=== PATIENT | female | born 1990 | race Two or more races ===

== ENCOUNTER 2019-01-12 20:19 | Emergency (ER) | payer OTHER ==
[~2019-01-12] VITALS: Ht 160 cm; Wt 61.4 kg
[2019-01-12 20:20] VITALS: BP 129/71
[2019-01-12] MEDS ORDERED: DRIS50003 PO (20:26)
[2019-01-12] MEDS ORDERED: diphenhydrAMINE INJ 50MG/ML VIAL (J1200) IV ONE (23:00)
[2019-01-12] MEDS ORDERED: GI COCKTAIL 50ML BTL(HYOSCYAMINE/MAALOX/LIDOCAINE VISCOUS)(1:3:1) PO ONE (23:00)
[2019-01-12] MEDS ORDERED: NS 1,000 ML IV ONE (23:00)
[2019-01-12] MEDS ORDERED: SUCRALFATE 1 GM TAB PO ONE (23:00)
[2019-01-12 23:07] LABS: BASO % 0.3 % (0.0-1.0); EOS # 0.7 10^3/uL (0.0-0.50); EOS % 8.8 % (0.0-3.0); HEMOGLOBIN 13.4 g/dl (12.0-15.5); LYMPH # 2.9 10^3/uL (1.5-6.5); LYMPH % 36.4 % (24.0-44.0); MEAN CORPUSCULAR HEMOGLOBIN 29.8 pg (27.0-33.0); MEAN CORPUSCULAR HGB CONC 33.5 g/dl (32.0-36.5); MEAN CORPUSCULAR VOLUME 89.1 fl (80.0-96.0); MONO # 0.4 10^3/uL (0.0-0.8); MONO % 5.3 % (0.0-5.0); NEUTROPHILS # 3.9 10^3/uL (1.8-7.7); NEUTROPHILS % 49.1 % (36.0-66.0); RED BLOOD COUNT 4.49 10^6/uL (4.00-5.40); WHITE BLOOD COUNT 7.9 10^3/uL (4.0-10.0)
[2019-01-12] MEDS ORDERED: ISOVUE-370 76% 100ML VIAL (Q9967) As Ordered ONE (23:09)
[2019-01-12 23:18] LABS: ALT/SGPT 42 U/L (12-78); BILIRUBIN,DIRECT < 0.1 MG/DL (0.0-0.2); BILIRUBIN,TOTAL 0.6 MG/DL (0.2-1.0); BLOOD UREA NITROGEN 9 MG/DL (7-18); CALCIUM LEVEL 8.7 MG/DL (8.5-10.1); CARBON DIOXIDE LEVEL 31 MEQ/L (21-32); CHLORIDE LEVEL 104 MEQ/L (98-107); CREATININE FOR GFR 0.74 MG/DL (0.55-1.30); GLOMERULAR FILTRATION RATE > 60.0 (>60); GLUCOSE, FASTING 96 MG/DL (70-100); LIPASE 231 U/L (73-393); POTASSIUM SERUM 3.6 MEQ/L (3.5-5.1); SODIUM LEVEL 138 MEQ/L (136-145)
[2019-01-12 23:21] LABS: HCG, SERUM QUALITATIVE NEGATIVE (NEGATIVE)
[2019-01-12] MEDS ORDERED: RANI15TA PO (23:38)
[2019-01-12] MEDS ORDERED: CARA1TAB6 PO (23:38)
== END 2019-01-12 23:53 | disposition left against medical advice (07) ==
LOC: M ED 20:19
DX: R10.13 Epigastric pain (principal); Z79.899 Other long term (current) drug therapy; Z53.21 Procedure and treatment not carried out due to patient leaving prior to being seen by health care provider

== ENCOUNTER 2019-01-15 13:31 | Emergency (ER) | payer OTHER ==
[~2019-01-15] VITALS: Ht 160 cm; Wt 61.8 kg
[~2019-01-15 13:31] MED LIST: CARA1TAB6 PO; DRIS50003 PO; RANI15TA PO
[2019-01-15] MEDS ORDERED: GI COCKTAIL 50ML BTL(HYOSCYAMINE/MAALOX/LIDOCAINE VISCOUS)(1:3:1) PO ONE (15:30)
[2019-01-15 15:55] LABS: BASO % 0.4 % (0.0-1.0); EOS # 0.5 10^3/uL (0.0-0.50); EOS % 6.3 % (0.0-3.0); HEMATOCRIT 42.2 % (36.0-47.0); HEMOGLOBIN 14.3 g/dl (12.0-15.5); LYMPH # 2.2 10^3/uL (1.5-6.5); LYMPH % 27.1 % (24.0-44.0); MEAN CORPUSCULAR HEMOGLOBIN 29.5 pg (27.0-33.0); MEAN CORPUSCULAR HGB CONC 33.9 g/dl (32.0-36.5); MEAN CORPUSCULAR VOLUME 87.2 fl (80.0-96.0); MONO # 0.4 10^3/uL (0.0-0.8); MONO % 5.3 % (0.0-5.0); NEUTROPHILS % 60.7 % (36.0-66.0); PLATELET COUNT, AUTOMATED 176 10^3/uL (150-450); RED BLOOD COUNT 4.84 10^6/uL (4.00-5.40); WHITE BLOOD COUNT 8.2 10^3/uL (4.0-10.0)
[2019-01-15 16:28] LABS: ALBUMIN 4.4 GM/DL (3.2-5.2); ALT/SGPT 49 U/L (12-78); BILIRUBIN,DIRECT 0.2 MG/DL (0.0-0.2); BILIRUBIN,TOTAL 0.7 MG/DL (0.2-1.0); BLOOD UREA NITROGEN 10 MG/DL (7-18); CALCIUM LEVEL 8.9 MG/DL (8.5-10.1); CARBON DIOXIDE LEVEL 30 MEQ/L (21-32); CHLORIDE LEVEL 103 MEQ/L (98-107); CREATININE FOR GFR 0.63 MG/DL (0.55-1.30); GLOMERULAR FILTRATION RATE > 60.0 (>60); GLUCOSE, FASTING 81 MG/DL (70-100); LIPASE 274 U/L (73-393); POTASSIUM SERUM 3.5 MEQ/L (3.5-5.1); SODIUM LEVEL 138 MEQ/L (136-145); TOTAL PROTEIN 8.9 GM/DL (6.4-8.2)
[2019-01-15] MEDS ORDERED: PROT1TAB2 PO (16:30)
[2019-01-15] MEDS ORDERED: CARA1TAB6 PO (16:30)
[2019-01-15 16:44] VITALS: BP 114/83
== END 2019-01-15 16:45 | disposition home or self-care (01) ==
LOC: M ED 13:31
DX: K29.00 Acute gastritis without bleeding (principal); K21.9 Gastro-esophageal reflux disease without esophagitis; Z79.899 Other long term (current) drug therapy

== ENCOUNTER 2019-04-23 12:20 | Emergency (ER) | payer OTHER ==
[~2019-04-23] VITALS: Ht 160 cm; Wt 62.0 kg
[~2019-04-23 12:20] MED LIST changes: +PROT1TAB2 PO
[2019-04-23] MEDS ORDERED: ASPIRIN 81 MG CHEW TABLET PO ONE (13:45)
[2019-04-23 14:13] LABS: BASO % 0.3 % (0.0-1.0); EOS # 0.1 10^3/uL (0.0-0.50); EOS % 0.8 % (0.0-3.0); HEMOGLOBIN 12.7 g/dl (12.0-15.5); LYMPH # 1.9 10^3/uL (1.5-6.5); LYMPH % 27.9 % (24.0-44.0); MEAN CORPUSCULAR HEMOGLOBIN 29.9 pg (27.0-33.0); MEAN CORPUSCULAR HGB CONC 33.4 g/dl (32.0-36.5); MEAN CORPUSCULAR VOLUME 89.4 fl (80.0-96.0); MONO # 0.4 10^3/uL (0.0-0.8); MONO % 5.7 % (0.0-5.0); NEUTROPHILS # 4.3 10^3/uL (1.8-7.7); NEUTROPHILS % 65.1 % (36.0-66.0); PLATELET COUNT, AUTOMATED 181 10^3/uL (150-450); RED BLOOD COUNT 4.25 10^6/uL (4.00-5.40); WHITE BLOOD COUNT 6.6 10^3/uL (4.0-10.0)
[2019-04-23 14:52] LABS: CK-MB VALUE MASS < 1.0 NG/ML (<3.6); CPK CREATINE PHOSPHOKINASE 115 U/L (26-192); MAGNESIUM LEVEL 2.2 MG/DL (1.8-2.4); MB/CK RELATIVE INDEX 0.87 (< OR =4); TROPONIN I < 0.02 NG/ML (< 0.10)
--- NOTE | 2019-04-23 15:15 | REP ---
PA and lateral chest: There are no comparisons. The lung sanches are clear. The cardiac size is normal. The anastasia, mediastinum, and skeletal structures are unremarkable. Impression: Negative PA and lateral chest. Electronically Signed by Frandy Hope MD 04/23/2019 03:06 P
[2019-04-23 15:45] VITALS: BP 107/70
[2019-04-23] MEDS ORDERED: LEVO50TA5 PO (15:56)
--- NOTE | 2019-04-23 16:29 | REP ---
CT of the cervical spine without IV contrast: Vertebral body heights, interspacing alignment are normal. The prevertebral soft tissues are normal. The facets are normally aligned. There is reversal of the normal cervical lordosis.. This is secondary to head positioning in the scanning gantry. The skull base, C1-C2 are unremarkable. There are no posterior element fractures. There is no bony foraminal encroachment. Impression: Essentially negative CT study of the cervical spine. Given symptomatology, neurologic consultation is recommended. MRI might be considered if felt clinically indicated. Electronically Signed by Frandy Hope MD 04/23/2019 04:20 P
--- NOTE | 2019-04-24 06:58 | ECGEPIP ---
[facility] - ED Test Date: 2019-04-23 Pat Name: CHELSEA VELEZ Department: Room: - Gender: Female Respiratory Coordinator: ct : 1990 Requested By: LOS Mina Order Number: [id number] Reading MD: Kenny Davila Measurements Intervals Rodney Rate: 60 P: 52 DE: 147 QRS: 73 QRSD: 90 T: 62 QT: 428 QTc: 429 Interpretive Statements SINUS RHYTHM BENIGN EARLY REPOLARIZATION NO PRIORS FOR COMPARISON Electronically Signed on 04-24-2019 6:58:29 EDT by Kenny Davila
--- NOTE | 2019-04-25 13:18 | ED PDOC ---
Post-Departure Follow-Up ft angelita fleming faxed formal report of ct c spine for fu Yulia Shetty MD Apr 25, 2019 13:18
== END 2019-04-23 16:10 | disposition home or self-care (01) ==
LOC: M ED 12:20
DX: R07.9 Chest pain, unspecified (principal); R79.89 Other specified abnormal findings of blood chemistry; Z87.19 Personal history of other diseases of the digestive system

== ENCOUNTER 2020-03-15 11:47 | Inpatient (IN) | payer OTHER ==
[2020-03-15] VITALS (23 sets, daily range): BP systolic 102–212; BP diastolic 55–89
[~2020-03-15] VITALS: Ht 160 cm; Wt 78.3 kg
[~2020-03-15 11:47] MED LIST changes: +LEVO50TA5 PO
[2020-03-15] MEDS ORDERED: DURA1CAP PO (12:02)
[2020-03-15] MEDS ORDERED: PRENTAB9 PO (12:02)
[2020-03-15] MEDS ORDERED: LACTATED RINGER'S 1000 ML IV STA (12:40)
[2020-03-15] MEDS ORDERED: OXYTOCIN DRIP 30 UNITS in IV 1 EA IV SCH (12:45)
[2020-03-15] MEDS: LR 1,000 ML IV SCH ×2 (13:40→20:10)
[2020-03-15 14:17] LABS: BASO % 0.2 % (0.0-1.0); EOS # 0.1 10^3/uL (0.0-0.5); EOS % 0.7 % (0.0-3.0); HEMOGLOBIN 12.1 g/dl (12.0-15.5); LYMPH # 1.3 10^3/uL (1.5-5.0); LYMPH % 15.5 % (24.0-44.0); MEAN CORPUSCULAR HEMOGLOBIN 29.9 pg (27.0-33.0); MEAN CORPUSCULAR HGB CONC 32.7 g/dl (32.0-36.5); MEAN CORPUSCULAR VOLUME 91.4 fl (80.0-96.0); MONO # 0.6 10^3/uL (0.0-0.8); NEUTROPHILS # 6.3 10^3/uL (1.5-8.5); NEUTROPHILS % 75.8 % (36.0-66.0); PLATELET COUNT, AUTOMATED 193 10^3/uL (150-450); RED BLOOD COUNT 4.05 10^6/uL (4.00-5.40); WHITE BLOOD COUNT 8.4 10^3/uL (4.0-10.0)
--- NOTE | 2020-03-15 15:03 | HPEPDOC ---
Obstetrical History & Physical General Date of Admission March 15, 2020 at 13:41 History of Present Illness Usha is a 29yo at 40+4 weeks gestation, EDC of [id number] by 1TUS at 9+5 weeks, is being admitted for elective induction of labor and Trial of Labor after . She was previously counseled and consented by the OB and she verbalizes today her continued desire for a TOLAC. She reports +FM, denies LOF/VB/CTX. She is here today with her spouse at the bedside. Her blood type is A Positive; GBS is negative. Her is complicated by history of hypothyroidism, currently taking 75mcg of Synthroid. OB History: 11/2015, PLTCS in [facility] for breech presentation (C/S records available for review in chart) Chief Complaint: Induction of labor, Other (TOLAC) Information Provided By: Patient Age: 29 : 2 Term: 1 Pre-term: 0 Abortions: 0 Livin Care Care: Good Care Number of Visits: 7 Dating Final EDC: March 11, 2020 Final EDC for Daily Update: March 11, 2020 Final EDC by: 1st trimester (US) Antepartum Course Height (inches): 63 Pre- weight (lbs.): 136 Admission Weight (lbs.): 170 Change in Weight (lbs.): 34 Past Medical History Past Obstetrical History : Past Obstetrical History: Multigravida Type of Delivery: Ceserean section (Breech) Sex of Infant: Male Weight of Infant (grams): 2970 Complications: No VALVE LAPPER History: No pertinent history (Last Pap 10/2019 NILM) Past Medical History Medical History Hypothyroidism Surgical History: section, Gallbladder, Hernia repair (groin) Family History Significant Family History: No pertinent family hx Social History Marital Status: Family situation: Spouse/partner home Psychosocial History: No pertinent psych hx * Smoker: non-smoker Alcohol: Denies Drugs: denies Imunizations Tdap status: declined Influenza Status: current Allergies Coded Allergies: No Known Allergies (Unverified , 01/12/19) Medications Scheduled Levothyroxine Sodium (Levothyroxine Sodium) 50 Mcg Tablet, 1 TAB PO DAILY No.137/Iron/Folic Acd ( Vitamin Tablet) 1 Each Tablet, 1 TAB PO DAILY Vitamin D3/Folic Acid (Durachol 3,775 Unit-1 mg Cap) 1 Each Capsule, 1 CAP PO DAILY Physical Examination Physical Examination GENERAL: Alert and oriented times three. BREAST: . ABDOMEN: Gravid and non-tender to touch. FETUS: Is vertex by sterile vaginal examination and TAUS. HEART RATE: Regular rate. LUNGS: Observed nonlabored breathing. EXTREMITIES: No edema. Vital Signs/I&O O: VSS, normotensive, afebrile VE: 1/L/-3 FHR 140s, moderate variability, No accels or decels. Category I. There have been accels noted. CTX by TOCO - occasional CRB placed via SSE - 60mL NS placed in each balloon - pt tolerated procedure well Pitocin started at 2mu/min - will hold at 6mu/min until CRB is out Laboratory Data 24H LABS Laboratory Tests 2 03/15/20 12:34: Immature Granulocyte % (Auto) 0.8, Neutrophils (%) (Auto) 75.8H, Lymphocytes (%) (Auto) 15.5L, Monocytes (%) (Auto) 7.0H, Eosinophils (%) (Auto) 0.7, Basophils (%) (Auto) 0.2, Neutrophils # (Auto) 6.3, Lymphocytes # (Auto) 1.3L, Monocytes # (Auto) 0.6, Eosinophils # (Auto) 0.1, Basophils # (Auto) 0.0, Nucleated Red Blood Cells % (auto) 0.0 03/15/20 13:44: Serology Scanned Report Hepatitis B Testing CBC/BMP Laboratory Tests 03/15/20 12:34 Pertinent Laboratoy Data Blood Type: A+ RBC Antibody Screen: Negative HIV: Negative Hepatitis B: Negative Rapid Plasma Reagin: Nonreactive Rubella: Immune Varicella: Immune Chlamydia/Gonorrhea: Negative Group B Streptococcus: Negative Quad Screen Test: Declined Anatomy Ultrasound Ultrasound Date: Oct 21, 2019 Placenta Location: Posterior Normal Anatomy: Yes Placenta Previa: No Vaginal Examination Presentation: Cephalic presentation Assessment/Plan Assessment A: Usha is a 29yo at 40+4wks being admitted for Elective IOL/TOLAC. VTX confirmed by TAUS. She has a Category I FHT. CRB in place and pitocin started. GBS Negative, A Positive. Plan P: Admit to LND, counseled on CRB and Pitocin induction Pt previously consented for TOLAC and today she desires to continue for IOL/TOLAC PIV start, admission labs drawn PO and IV hydration Clear liquid diet CEFM x2 Close maternal/ monitoring Rx for Synthroid for AM dosing Anticipate Repeat C-S as appropriate Co-manage with OB. PILLO MCKENZIE CNM March 15, 2020 15:02
[2020-03-15] MEDS ORDERED: SYNT75TA PO (15:13)
[2020-03-15] MEDS ORDERED: PROMETHAZINE INJ 25 MG/ML VIAL (J2550) IV ONE (19:45)
[2020-03-15] MEDS ORDERED: BUTORPHANOL 2 MG/ML INJ (J0595) IV PRN (19:45)
[2020-03-16] VITALS (15 sets, daily range): BP systolic 95–150; BP diastolic 52–66
--- NOTE | 2020-03-16 00:04 | IPNPDOC ---
Text Note Date of Service The patient was seen on 03/16/20. NOTE Intrapartum Note Usha is a 29yo at 40w4d undergoing IOL with history of prior section for breech presentation. IOL was started with aj bulb 60/60 and low dose pitocin up to 6mu. Aj bulb fell out around 2215. Patient also received stadol/phenergan approx 2hr ago. She is now feeling ctx as very strong, otherwise doing well. Membranes still intact. Vitals wnl, afebrile Cat I-II FHRT with bl 120's, min-mod hina, +accels, recent early decels SCE: /-2 Patient interested in epidural, will hold off on ROM for now Will continue pitocin at current level Will continue to closely monitor Safe to proceed Dr. Marcy Devi MD VS,Chanel, I+O VS, Chanel, I+O Laboratory Tests 03/15/20 12:34 Vital Signs Date Time Temp Pulse Resp B/P (MAP) Pulse Ox O2 Delivery O2 Flow Rate FiO2 03/15/20 22:38 99 18 113/67 (82) 03/15/20 22:38 97.8 I&O- Last 24 Hours up to 6 AM 03/16/20 06:00 Intake Total 300 ml Balance 300 ml Marcy Devi MD March 16, 2020 00:04
[2020-03-16] MEDS ORDERED: FENTANYL 2MCG/ML ROPIVACAINE 0.2% IN 0.9% NACL 100ML IVBAG As Ordered ONE (00:06)
[2020-03-16] MEDS ORDERED: EPIDURAL COMMENT XX SCH (00:23)
[2020-03-16] MEDS ORDERED: NALOXONE INJ 0.4MG/1ML VIAL (J2310 PER 1MG) IV PRN ×3 (00:23→01:36)
[2020-03-16] MEDS ORDERED: LACTATED RINGER'S 1000 ML IV PRN (00:23)
[2020-03-16] MEDS ORDERED: ePHEDrine SULFATE 25 MG/5 ML(5MG/ML) SYRINGE IV PRN (00:23)
[2020-03-16] MEDS ORDERED: FENTANYL/ROPIVACAINE/NACL BAG 100 ML EPIDURAL SCH (00:23)
[2020-03-16] MEDS ORDERED: diphenhydrAMINE 50MG/ML VIAL (J1200) IV PRN ×2 (00:23→01:36)
[2020-03-16] MEDS ORDERED: EPIDURAL/PCA KEYS XX PRN (00:23)
[2020-03-16] MEDS ORDERED: REFRIGERATOR IV KEYS XX PRN (00:23)
[2020-03-16 01:29] LABS: CORD GAS ABE V -4.5; CORD GAS HCO3 V 23.8 MEQ/L; CORD GAS O2 SAT V 45.9 %; CORD GAS PCO2 V 57.1 mmHg; CORD GAS PH V 7.238 UNITS; CORD GAS SBC V 19.5 MEQ/L; CORD GAS TCO2 V 25.6 MEQ/L
[2020-03-16] MEDS ORDERED: LIDOCAINE 2% W/EPIN INJ 20ML **PRES FREE As Ordered ONE (01:32)
[2020-03-16] MEDS ORDERED: ONDANSETRON 4MG/2ML VIAL As Ordered ONE ×2 (01:33→03:34)
[2020-03-16] MEDS ORDERED: MORPHINE PRES-FREE INJ 10 MG/10 ML VIAL (J2274) As Ordered ONE (01:34)
[2020-03-16] MEDS ORDERED: NALBUPHINE HCL 10 MG/ML AMP (J2300) IV PRN (01:36)
[2020-03-16] MEDS ORDERED: METOCLOPRAMIDE INJ 10MG/2ML VIAL (J2765 PER 1) IV PRN ×2 (01:36→02:45)
[2020-03-16] MEDS ORDERED: ONDANSETRON 4MG/2ML VIAL IV PRN ×2 (01:36→02:45)
[2020-03-16] MEDS ORDERED: ceFAZolin 2 GM/D5W 50 ML IV BAG (J0690 PER 500MG) As Ordered ONE (01:47)
[2020-03-16] MEDS ORDERED: KETOROLAC 60 MG/2 ML VIAL As Ordered ONE (01:53)
[2020-03-16] MEDS ORDERED: propofoL 200 MG/20 ML VIAL As Ordered ONE (01:53)
[2020-03-16] MEDS ORDERED: ceFAZolin SOD 2 GM in IV 1 EA IV ONE (02:00)
[2020-03-16] MEDS ORDERED: OXYTOCIN 30 UNITS IN 0.9% NaCl 500ML IV BAG (J2590) As Ordered ONE ×2 (02:08→02:20)
[2020-03-16] MEDS ORDERED: OXYTOCIN DRIP 30 UNITS in IV 1 EA IV SCH (02:28)
[2020-03-16] MEDS ORDERED: PERCOCET 5MG/325MG TAB PO PRN ×2 (02:30→02:45)
[2020-03-16] MEDS ORDERED: MEASLES,MUMPS,RUBELLA VACCINE INJ (MMR-II) (90707) SC SCH (02:30)
[2020-03-16] MEDS ORDERED: RHOGAM 300 MCG (1500 IU) INJ (J2790) IM SCH (02:30)
--- NOTE | 2020-03-16 02:35 | REPVR ---
PROCEDURE INFORMATION: Exam: XR Abdomen, 1 View Exam date and time: 03/16/2020 2:10 AM Age: 29 years old Clinical indication: Other: no count TECHNIQUE: Imaging protocol: XR of the abdomen. Views: Frontal supine view of the abdomen. 1 View. COMPARISON: No relevant prior studies available. FINDINGS: Tubes, catheters and devices: For metallic wire overlying the upper lumbar spine, likely epidural catheter. Gastrointestinal tract: Normal. No bowel dilation. Organs: Soft tissue density and paucity of gas over the pelvis consistent with uterus. Bones/joints: Mild diastasis of the symphysis pubis. Soft tissues: No retained foreign bodies or retained instruments. IMPRESSION: 1. Mild diastasis of the symphysis pubis. 2. Soft tissue density over the pelvis which may reflect uterus. 3. Probable epidural catheter overlying the mid lumbar spine. 4. No radiopaque foreign bodies or retained instruments are seen. Electronically signed by: Andrey Espinoza On 03/16/2020 02:34:34 AM
[2020-03-16] MEDS ORDERED: fentaNYL 100 MCG/2 ML INJECTION (J3010) IV PRN (02:45)
[2020-03-16] MEDS ORDERED: KETOROLAC 30 MG/ML 1ML VIAL IV PRN (02:45)
[2020-03-16] MEDS ORDERED: LR 1,000 ML IV SCH (02:45)
[2020-03-16] MEDS: LEVOTHYROXINE 75MCG TABLET (0.075MG) PO SCH (06:21)
[2020-03-16] MEDS: LR 1,000 ML IV SCH ×3 (06:55→20:16)
--- NOTE | 2020-03-16 07:01 | DNPDOC ---
[facility] Delivery Note Delivery Note DATE OF DELIVERY: 03/16/20 PREDELIVERY DIAGNOSIS: History of prior section for breech presentation IOL at 40w4d bradycardia Failed TOLAC POST DELIVERY DIAGNOSIS: History of prior section for breech presentation IOL at 40w4d bradycardia Failed TOLAC Delivered PROCEDURE: Emergency repeat low transverse section FACILITY MANAGER: Dr. Marcy Devi MD ANESTHESIA: epidural ESTIMATED BLOOD LOSS: 500 mL. IVF: 700ml LR UOP: 225ml FINDINGS: 8 pound 0 ounce (3630g) female , Score 9/9 DELIVERY SUMMARY: Usha is a 29yo [id number] s/p uncomplicated emergency RLTCS for bradycardia that developed at 6/80/-2 while undergoing IOL at 40w4d. She had aj cervical bulb placed with low dose pitocin, she progressed well after aj bulb fell out, but eventually developed bradycardia resistant to resuscitative measures ( heart rate 90's-frc727's for approx 10min). Patient was rushed to the operating room with verbal consent for section and the procedure was uncomplicated. portable x-ray performed at the end of the procedure showed no retained instruments/sponges. Please see dictated op report for further details. MD Shandra Ashby Katrina D MD March 16, 2020 07:01
[2020-03-16] MEDS: KETOROLAC 30 MG/ML 1ML VIAL IV SCH ×3 (07:44→20:18)
--- NOTE | 2020-03-16 08:59 | IPNPDOC ---
Progress Note Date of Service: March 16, 2020 Day#: 0 Progress Note PPD/POD 0 SUBJECT: Usha is a 29yo [id number] s/p uncomplicated emergency RLTCS for bradycardia that developed at 6/80/-2 while undergoing IOL at 40w4d, doing well day # 0. She has not yet ambulated (surgery was around 0100), aj still in place. Drinking plenty of fluids, has not yet tried food but has an appetite. Breast feeding without issue. Reports lochia is like a normal period. Pain well controlled with toradol/percocet. No f/c/n/v/CP/SOB. OBJECTIVE: VITAL SIGNS: Within normal limits, afebrile. Alert and oriented times three. Abdomen: Fundus firm at U-2. Soft, appropriately tender to palpation without rebound/guarding. Pfannensteil incision covered by dry clean dressing. Extremities: no pain with palpation of calves Labs: pre-op H/H: 12. ASSESSMENT: Usha is a 29yo [id number] s/p uncomplicated emergency RLTCS for bradycardia that developed at 6/80/-2 while undergoing IOL at 40w4d., doing well day # 0. Vitals within normal limits, afebrile, hemodynamically stable with no evidence of infection. PLAN: 1. Routine /post-op care 2. Toradol then Motrin for pain as well as prn percocet. 3. Encourage breast feeding and ambulation and use of IS 4. Remove aj catheter this afternoon with due to void 4 hours after aj removal 5. Regular diet 6. Ok to shower late this evening and remove outer bandage, keep steri strips in place for [address] Marcy Devi MD VS, I&O, 24H, [facility] Vital Signs/I&O Vital Signs Date Time Temp Pulse Resp B/P (MAP) Pulse Ox O2 Delivery O2 Flow Rate FiO2 03/16/20 07:18 98.4 87 18 100/58 (72) 95 Room Air I&O- Last 24 Hours up to 6 AM 03/16/20 06:00 Intake Total 3546 ml Output Total 1500 ml Balance 2046 ml Laboratory Data 24H LABS Laboratory Tests 2 03/15/20 12:34: Immature Granulocyte % (Auto) 0.8, Neutrophils (%) (Auto) 75.8H, Lymphocytes (%) (Auto) 15.5L, Monocytes (%) (Auto) 7.0H, Eosinophils (%) (Auto) 0.7, Basophils (%) (Auto) 0.2, Neutrophils # (Auto) 6.3, Lymphocytes # (Auto) 1.3L, Monocytes # (Auto) 0.6, Eosinophils # (Auto) 0.1, Basophils # (Auto) 0.0, Nucleated Red Blood Cells % (auto) 0.0 03/15/20 13:44: Serology Scanned Report Hepatitis B Testing 03/16/20 01:20: Cord Venous Blood pH 7.238, Cord Venous Blood PCO2 57.1, Cord Venous Blood PO2 24.0, Cord Venous Blood HCO3 23.8, Cord Venous Blood Total CO2 25.6, Cord Venous Base Excess (Actual) -4.5, Cord Venous Base Excess (Standard) 19.5, Cord Venous Blood Oxygen Saturation 45.9 CBC/BMP Laboratory Tests 03/15/20 12:34 Marcy Devi MD March 16, 2020 08:59
[2020-03-16] MEDS: PRENATAL VITAMINS CHEWABLE TABLET PO SCH (09:00)
[2020-03-16] MEDS ORDERED: BOOSTRIX/ADACEL VACCINE (DIPHTH/PERTUSS/ACELL/TETANUS) 0.5ML SYR IM ONE (09:00)
[2020-03-16] MEDS: DOCUSATE SODIUM 100 MG CAP PO SCH ×2 (09:30→20:16)
[2020-03-17 02:00] VITALS: BP 98/56
[2020-03-17] MEDS: IBUPROFEN 800 MG TAB PO SCH ×3 (04:02→20:56)
[2020-03-17 06:00] VITALS: BP 95/54
[2020-03-17] MEDS: LEVOTHYROXINE 75MCG TABLET (0.075MG) PO SCH (06:10)
[2020-03-17 07:06] LABS: HEMATOCRIT 33.2 % (36.0-47.0); HEMOGLOBIN 10.9 g/dl (12.0-15.5); MEAN CORPUSCULAR HGB CONC 32.8 g/dl (32.0-36.5); MEAN CORPUSCULAR VOLUME 91.5 fl (80.0-96.0); PLATELET COUNT, AUTOMATED 165 10^3/uL (150-450); RED BLOOD COUNT 3.63 10^6/uL (4.00-5.40); WHITE BLOOD COUNT 14.7 10^3/uL (4.0-10.0)
[2020-03-17] MEDS: DOCUSATE SODIUM 100 MG CAP PO SCH ×2 (08:35→20:56)
[2020-03-17] MEDS: PRENATAL VITAMINS CHEWABLE TABLET PO SCH (08:35)
[2020-03-17 09:50] VITALS: BP 109/64
[2020-03-17] MEDS: PERCOCET 5MG/325MG TAB PO PRN ×2 (10:03→15:12)
[2020-03-17 14:00] VITALS: BP 106/57
--- NOTE | 2020-03-17 14:11 | IPN ---
DATE: 03/17/2020 This lady is 29-year-old, 2, para 2, was admitted for induction of labor at 40 and 4 weeks of gestation and was a trial of labor after (TOLAC) candidate. She had a failure of TOLAC, had an emergency section for nonreassuring heart tones and had a repeat section of a female infant 8 pounds 0 ounces (3630 grams), of 9 and 9 at one and five minutes, respectively. Venous pH was 7.23, base excess -4.5. Her admitting hemoglobin was 12.1, hematocrit 37.0, and platelets 193. Her day #1 hemoglobin is pending. She is hypothyroid and is taking medication for same. On examination today, no phlebitis, cystitis, mastitis, endometritis and cellulitis. Diet, exercise, pain management, perineal, breast and wound care were discussed. She is normocephalic, atraumatic. Neck full range of motion. Pupils equal and reactive to light. Distal pulses symmetric. No evidence of deep venous thrombosis (DVT), pulmonary embolism (PE) or superficial phlebitis. Chest is clear bilaterally bases. No wheezes or rhonchi. No costovertebral angle (CVA) tenderness. Abdomen is soft. Four quadrant bowel sounds are noted. Incision is clean and dry. Her blood pressure is 95/54, respirations 16, pulse 96, and temperature is 98.5. Plans are that she was given her prescriptions to go to the [facility] on Thursday after discharge to tile picker her medications for . The patient is planning on discharge tomorrow. All questions were answered. No expressed complaints.
[2020-03-17 18:00] VITALS: BP 112/63
[2020-03-17 22:00] VITALS: BP 118/69
[2020-03-18 02:00] VITALS: BP 111/69
[2020-03-18] MEDS: LEVOTHYROXINE 75MCG TABLET (0.075MG) PO SCH (05:02)
[2020-03-18] MEDS: IBUPROFEN 800 MG TAB PO SCH (05:03)
[2020-03-18 06:00] VITALS: BP 116/72
[2020-03-18] MEDS: DOCUSATE SODIUM 100 MG CAP PO SCH (08:25)
[2020-03-18] MEDS: PRENATAL VITAMINS CHEWABLE TABLET PO SCH (08:25)
[2020-03-18] MEDS ORDERED: MIRALAX *UNIT DOSE* 17GM PACKET PO SCH (09:00)
[2020-03-18] MEDS ORDERED: BOOSTRIX/ADACEL VACCINE (DIPHTH/PERTUSS/ACELL/TETANUS) 0.5ML SYR IM ONE (09:00)
--- NOTE | 2020-03-18 09:15 | IPNPDOC ---
Progress Note Date of Service: March 18, 2020 Day#: 2 Progress Note SUBJECT: Patient is a 29 yo S/P RLTCD for NRFHT during TOLAC POD #2. She has been ambulating, voiding spontaneously without issue and tolerating regular diet. Breast feeding without issue. Reports lochia is like a normal period. Pain is controlled with scheduled motrin and prn percocet. OBJECTIVE: VITAL SIGNS: Within normal limits, afebrile. Alert and oriented times three. Abdomen: Fundus firm at U-2. Soft, incision c/d/i, appropriate TTP. LE: non pitting edema, neg erythema/tenderness A/P pod #2, doing well. discussed discharge instructions. d/c home today. DO Francoise VS, I&O, 24H, [facility] Vital Signs/I&O Vital Signs Date Time Temp Pulse Resp B/P (MAP) Pulse Ox O2 Delivery O2 Flow Rate FiO2 03/18/20 06:00 97.7 105 17 116/72 (87) 98 Room Air CHRIS TRINH DO March 18, 2020 09:14
--- NOTE | 2020-03-18 09:21 | OBDS ---
[facility] Obstetrical Discharge Sum. Obstetrical Discharge Summary Date: March 18, 2020 : 2 Term: 2 Pre-term: 0 Abortions: 0 Livin VDRL: Non-Reactive Rh: Positive Rubella: Immune Sex: Female Weight: pounds (8), grams Anesthesia: Regional Anesthesia A/P, Post Course List any complications Admission diagnosis: Gravid at 40+4wks gestation History of prior delivery desiring trial of labor Discharge diagnosis: , repeat low transverse section Condition at Discharge: stable Discharge Instructions: Home Activity: as tolerated Diet: regular Medications: fill at ft. drum Follow-up: 2 weeks Hospital course: Patient admitted for induction of labor at 40+4wks gestation for pending post dates. She underwent urgent repeat section for non reassuring he art tracing. Delivery uncomplicated. course uncomplicated and patient discharged home on day #2. CHRIS TRINH DO March 18, 2020 09:21
--- NOTE | 2020-03-20 13:51 | RO ---
DATE OF OPERATION: 03/16/2020 SURGEON: Marcy Devi MD REMOTE SENSING SCIENTIST: None. CLINICAL SERVICES: Obstetrics. INDICATION FOR OPERATION: Usha is a 29-year-old, (G) 2, now para (P) 2 0-0-2, who is undergoing induction of labor at 40 weeks 4 days having a history of prior section indicated for breech presentation. She was counseled regarding the option of a repeat low transverse section that was scheduled versus an induction of labor for post dates with an attempted trial of labor and she very adamantly desired a trial of labor. She had Simon cervical bulb placed with low dose Pitocin. She progressed well after the Simon bulb fell out making it to 6, 80, minus 2 but she developed bradycardia that was resistant to resuscitative measures. heart rate was in the 90s to low 100s for approximately 10 minutes. The patient was rushed to the operating room for an emergency section after being verbally consented. PREOPERATIVE DIAGNOSIS: 40 week 4 day roberts intrauterine , induction of labor for late term gestation, history of prior section for breech presentation, bradycardia with need for emergency failed trial of labor after (TOLAC). POSTOPERATIVE DIAGNOSIS: 40 week 4 day roberts intrauterine , induction of labor for late term gestation, history of prior section for breech presentation, bradycardia with need for emergency failed trial of labor after . MATERIAL FORWARDED TO LAB FOR EXAMINATION: Cord gases, pH venous 7.238, base excess -4.5 DESCRIPTION OF FINDINGS: Female in cephalic presentation. score 9 and 9. 8 pounds 0 ounces or 3630 grams. No evidence of any nuchal cord. No evidence of any uterine rupture. The uterus itself and fallopian tubes and ovaries were normal in appearance. INFECTION CLASSIFICATION: 2. ESTIMATED BLOOD LOSS: 500 mL. INTRAVENOUS (IV) FLUIDS: 700 mL lactated Ringer. URINE OUTPUT: 225 mL. OPERATION PERFORMED: Repeat low transverse section, emergency. DESCRIPTION OF OPERATION: After obtaining informed consent verbally the patient was rushed to the operating room. Doppler trends in the operating room (OR) were 103 beats per minute. She already had a Simon catheter in place and bilateral sequential compression devices were placed. She had received an epidural prior. She was prepped with Betadine splash, draped. She was in dorsal supine position with a left lateral tilt. Time-out was briefly performed to confirm patient name, date of , procedure and indication. The team was in agreement. Epidural anesthesia was found to be adequate using an Allis clamp. A Pfannenstiel skin incision was made with a scalpel and carried through to the underlying layer of fascia. Fascia was incised in the midline and the incision was extended laterally with blunt dissection. Superior and inferior aspects of the fascial incision were dissected bluntly to gain space from the underlying rectus muscles. Peritoneum was quickly entered digitally. Rectus muscles were in the midline. Peritoneal incision was extended superiorly and inferiorly with good visualization of the bladder. A bladder blade was inserted and the lower uterine segment was scored in a transverse fashion with the scalpel. Uterus was entered bluntly and the incision was extended with traction. Bladder blade was removed and the infant's head was elevated to level of the incision. Fundal pressure was applied. Head was delivered atraumatically in the occiput anterior (OA) position. Anterior shoulder, posterior shoulder, and corpus were delivered without difficulty. Nose and mouth were suctioned with bulb suction. Cord was clamped times two and cut. was vigorous upon delivery, handed off to the awaiting nursing team. Cord gases were obtained. Placenta was then removed with uterine massage and traction on the umbilical cord. Uterus was exteriorized and cleared of all clot and debris. Uterine incision was repaired with #0 Vicryl suture in a running locking fashion. A second layer of #0 Monocryl was used to close the hysterotomy incision in imbricating fashion. Uterine incision was inspected. Hemostasis noted. Posterior cul-de-sac was irrigated and uterus returned the abdomen. Gutters were cleared of all clots. Peritoneum was closed using #3-0 Vicryl suture in a running fashion. Rectus muscles were observed to be hemostatic. Fascia was reapproximated using #0 Vicryl suture in a running fashion. Subcutaneous tissue was copiously irrigated. Tiera fascia was reapproximated using #3-0 Vicryl suture in a running fashion. Skin edges were reapproximated using three interrupted stitches using #0 Vicryl suture, followed by a running subcuticular stitch using #4-0 Monocryl suture. At that point, the x-ray electronic sales and service technician came in with a portable x-ray and performed an x-ray of the pelvis and abdomen to ensure that there were no retained sponges or instrument given a count could not be performed prior to the surgery given the urgent nature. I observed the x-ray to be free of any retained foreign bodies. The incision was then cleaned with a wet lap and dried with a dry lap. Steri-Strips were applied in the usual fashion perpendicular to the Pfannenstiel incision. Two strips of Telfa were layered on top of the Steri-Strips, followed by a dry sterile towel. Surgical drapes were removed. Sterile towel was removed. Pressure dressing was applied over the entire surgical incision. Vagina was cleared of all blood clot without active bleeding noted. Fundus was firm at U minus 1 cm. Procedure was without complications. The patient tolerated the procedure well, and she was taken to the recovery room in labor and delivery in stable condition. She did receive 2 grams of IV Ancef during the procedure.
== END 2020-03-18 11:30 | disposition home or self-care (01) | DRG 773 ==
LOC: M LDO 11:47 → M LDI 13:41 → M OBS 03-16 04:45
PROVIDERS: ADMIT Registered Nurse Maternal Newborn; ATTEND Obstetrics & Gynecology
PROC: 3E033VJ Introduction of Other Hormone into Peripheral Vein, Percutaneous Approach (ICD-10-PCS; 2020-03-15)
PROC: 10D00Z1 Extraction of Products of Conception, Low, Open Approach (ICD-10-PCS; principal; 2020-03-16 01:22)
DX: O48.0 Post-term pregnancy (principal); Z3A.39 39 weeks gestation of pregnancy; O99.284 Endocrine, nutritional and metabolic diseases complicating childbirth; E03.9 Hypothyroidism, unspecified; O76 Abnormality in fetal heart rate and rhythm complicating labor and delivery; O66.41 Failed attempted vaginal birth after previous cesarean delivery; O34.211 Maternal care for low transverse scar from previous cesarean delivery; Z37.0 Single live birth